=== PATIENT | male | born 1995 | race Caucasian/White ===

== ENCOUNTER 2016-12-16 11:36 | Emergency (ER) | payer MEDICAID ==
[~2016-12-16] VITALS: Ht 167.6 cm; Wt 60.8 kg
[~2016-12-16 11:36] MED LIST: PROAIR HFA0.09 MG/Ac IH
[2016-12-16 11:37] VITALS: BP 125/79
--- NOTE | 2016-12-16 11:40 | NUR ---
PT AMBULATED TO ER BED 6.
--- NOTE | 2016-12-16 11:44 | NUR ---
21/M C/O SOB AFTER ARGUMENT WITH GIRLFRIEND---ALSO CHASING GIRLFRIEND ADDS CONSTIPATION WITH RECTAL DISCOMFORT. DENIES DRUG USE OTHER THAN MARIJUANA TODAY. AAOx4, PERRLA. JIGARD NOTIFIED OF PT STATUS.
[2016-12-16 11:46] VITALS: BP 125/79
--- NOTE | 2016-12-16 11:50 | NUR ---
PATIENT LEFT WITHOUT DISCHARGE INSTRUCTION BY ERMD. NO FURTHER CARE PROVIDED FOR PATIENT.
== END 2016-12-16 11:50 | disposition left against medical advice (07) ==
LOC: MED 11:36
DX: R06.02 Shortness of breath (principal); Z53.21 Procedure and treatment not carried out due to patient leaving prior to being seen by health care provider

== ENCOUNTER 2016-12-24 08:19 | Emergency (ER) | payer MEDICAID ==
[~2016-12-24] VITALS: Ht 167.6 cm; Wt 60.8 kg
--- NOTE | 2016-12-24 08:37 | NUR ---
PATIENT TO ER BED 5.
[2016-12-24 08:39] VITALS: BP 117/67
[2016-12-24] MEDS ORDERED: KETOROLAC 60 MG/2 ML VIAL IM ONE (08:40)
[2016-12-24] MEDS ORDERED: ONDANSETRON 4 MG ODT PO ONE (08:40)
--- NOTE | 2016-12-24 08:40 | NUR ---
Patient being evaluated by physician at bedside.
--- NOTE | 2016-12-24 08:48 | NUR ---
21/M TO ED WITH C/O SORE THROAT, COUGH X1 WEEK. PT STATES HE HAD N/V/D STARTING THIS MORNING. PAIN 8/10. BOWEL SOUNDS PRESENT X4Q. LUNGS CLEAR BILAT. HR EVEN AND REGULAR. AAOX4. VSS. NO SIGNS OF DISTRESS.
[2016-12-24] MEDS ORDERED: ALUMINUM HYD/MAG/SIMETHICONE 30 ML, BELLADONNA/PHENOBARBITAL 10 ML, LIDOCAINE VISCOUS 2... PO ONE (09:05)
[2016-12-24 09:38] VITALS: BP 117/67
--- NOTE | 2016-12-24 09:38 | NUR ---
Patient discharged with v/s stable. Written and verbal after care instructions given and explained. Patient alert, oriented and verbalized understanding of instructions. Ambulatory with steady gait. All questions addressed prior to discharge. ID band removed. Patient advised to follow up with PMD. Rx of CHLORASEPTIC, ZOFRAN, BENTYL, ALBUTEROL given. Patient educated on indication of medication including possible reaction and side effects. Opportunity to ask questions provided and answered.
== END 2016-12-24 09:38 | disposition home or self-care (01) ==
LOC: MED 08:19
DX: B34.9 Viral infection, unspecified (principal); J45.909 Unspecified asthma, uncomplicated
CPT/HCPCS: 96372; 99283; J1885; S0119

== ENCOUNTER 2016-12-29 06:30 | Emergency (ER) | payer MEDICAID ==
[~2016-12-29] VITALS: Ht 167.6 cm; Wt 60.8 kg
[~2016-12-29 06:30] MED LIST changes: +ALBU-136 IH; -PROAIR HFA0.09 MG/Ac IH
[2016-12-29 06:36] VITALS: BP 116/81
--- NOTE | 2016-12-29 06:55 | NUR ---
PT IS 21/M BIB SELF TO ED WITH C/O SOB, COUGHING X 2 WEEKS. PT STATES CHEST PAIN SINCE 0400 TODAY. PT STATES VIRAL INFECTION LAST WEEK AND WAS GIVEN ZOFRAN. PT STATES MED HX OF ASTHMA, GERD. DENIES V/D; SKIN IS PINK/WARM/DRY; AAOX4 WITH EVEN AND STEADY GAIT; LUNGS CLEAR BL; HR EVEN AND REGULAR; PT DENIES ANY FEVER AT THIS TIME; PATIENT STATES PAIN OF 9/10 AT THIS TIME; VSS; PATIENT POSITIONED FOR COMFORT; HOB ELEVATED; BEDRAILS UP X2; BED DOWN. ER MD MADE AWARE OF PT STATUS.
--- NOTE | 2016-12-29 07:12 | NUR ---
ENDORSED REPORT TO DAY SHIFT NURSE MARYLU HARVEY FOR TRANSFER OF CARE.
[2016-12-29] MEDS ORDERED: ACETAMINOPHEN EXTRA STRENGTH 500 MG TAB PO ONE (07:15)
[2016-12-29] MEDS ORDERED: methylPREDNISolone SS 125 MG in WATER STERILE 2 ML IV ONE (07:15)
--- NOTE | 2016-12-29 07:17 | NUR ---
DR. CRUZ PRESENT AT BEDSIDE.
--- NOTE | 2016-12-29 07:20 | NUR ---
RECEIVED REPORT FROM MARYLU MCKEON. PT IS AAOX4. SKIN IS WARM, PINK AND DRY. PT C/O CHEST PAIN 9/10 AT THIS TIME. SAFETY PRECAUTIONS IN PLACE WITH BED IN LOWEST POSITION AND SIDE RAIS UP X2. WILL CONTINUE TO MONITOR.
--- NOTE | 2016-12-29 07:38 | NUR ---
PT TO RADIOLOGY VIA WHEELCHAIR.
[2016-12-29] MEDS: ALBUTEROL SULFATE/IPRATROPIU 3 ML SOL IH ONE ×2 (07:39→08:23)
--- NOTE | 2016-12-29 07:41 | NUR ---
PT BACK FROM RADIOLOGY AND IN BED
[2016-12-29] MEDS ORDERED: methylPREDNISolone SS 125 MG/2 ML VIAL ONE (07:56)
[2016-12-29 08:02] LABS: BILIRUBIN,URINE NEGATIVE (NEGATIVE); BLOOD, URINE 2+ (NEGATIVE); COLOR,URINE YELLOW (YELLOW); LEUKOCYTE ESTERASE ,URINE NEGATIVE (NEGATIVE); NITRITE, URINE NEGATIVE (NEGATIVE); PH,URINE 5.5 (5.0-9.0); PROTEIN,URINE NEGATIVE (NEGATIVE); UGLUCOSE NEGATIVE (NEGATIVE); UROBILINOGEN,URINE 0.2 EU/dL (0.2 - 1)
[2016-12-29 08:04] LABS: BASOPHILS # (AUTO) 0.2 K/uL (0.00-0.22); BASOPHILS % (AUTO) 2.7 % (0.0-2.0); EOSINOPHILS # (AUTO) 0.3 K/uL (0-0.4); EOSINOPHILS % (AUTO) 3.6 % (0.0-4.0); HEMATOCRIT 44.9 % (36-52); HEMOGLOBIN 14.9 g/dL (12.0-18.0); LYMPHOCYTES # (AUTO) 1.1 K/uL (2.0-11.5); LYMPHOCYTES % (AUTO) 14.4 % (20.5-51.1); MEAN CORPUSCULAR HEMOGLOBIN 32 pg (27-31); MEAN CORPUSCULAR HGB CONC 33 g/dL (33-37); MEAN CORPUSCULAR VOLUME 95 fL (80-94); MONOCYTES # (AUTO) 0.7 K/uL (0.8-1.0); MONOCYTES % (AUTO) 9.8 % (1.7-9.3); NEUTROPHILS # (AUTO) 5.3 K/uL (1.8-7.7); NEUTROPHILS % (AUTO) 69.5 % (42.2-75.2); PLATELET COUNT (AUTO) 194 K/uL (140-450); RED BLOOD CELL COUNT(AUTO) 4.72 MIL/uL (4.20-6.10); RED CELL DISTRIBUTION WIDTH 12.2 % (11.6-13.7); WHITE BLOOD COUNT (AUTO) 7.6 K/uL (4.8-10.8)
[2016-12-29 08:08] LABS: APPEARANCE,URINE HAZY (CLEAR)
[2016-12-29 08:08] LABS: ANION GAP 10.5 (8-16); CREATININE 0.8 mg/dL (0.6-1.3); POTASSIUM 3.5 mmol/L (3.5-5.1)
[2016-12-29 08:10] LABS: PROTHROMBIN TIME 9.8 secs (10.8-13.4)
[2016-12-29 08:10] LABS: AMPHETAMINE, URINE NEG. ng/ml (NEG <=1000); BARBITURATE, URINE NEG. ng/ml (NEG <=200); BENZODIAZEPINE, URINE NEG. ng/mL (NEG <=200); CANNABINOID, URINE POS. ng/mL (NEG <=50); COCAINE, URINE NEG. ng/mL (NEG <=300); OPIATE, URINE NEG. ng/mL (NEG <=2000); PHENCYCLIDINE SCREEN,URINE NEG. ng/mL (NEG <=25)
[2016-12-29 08:12] LABS: CALCIUM 8.6 mg/dL (8.5-10.1)
[2016-12-29 08:16] LABS: BACTERIA,URINE 1+ /HPF (None Seen); SQUAMOUS EPITHELIAL CELL,UR 0-4 /LPF (0-3 (FEW)); WBC,URINE O-3 /HPF (0-5)
--- NOTE | 2016-12-29 08:25 | NUR ---
RT PRESENT AT BEDSIDE FOR BREATHING TX.
--- NOTE | 2016-12-29 09:09 | NUR ---
DR. CRUZ PRESENT AT PT BEDSIDE.
[2016-12-29 09:17] VITALS: BP 118/55
--- NOTE | 2016-12-29 09:28 | NUR ---
Patient discharged with v/s stable. Written and verbal after care instructions given and explained. Patient alert, oriented and verbalized understanding of instructions. Ambulatory with steady gait. All questions addressed prior to discharge. ID band removed. Patient advised to follow up with PMD. Rx of CIPRO, ALBUTEROL, PREDNISON given. Patient educated on indication of medication including possible reaction and side effects. Opportunity to ask questions provided and answered.
== END 2016-12-29 09:28 | disposition home or self-care (01) ==
LOC: MED 06:30
DX: J45.901 Unspecified asthma with (acute) exacerbation (principal); N39.0 Urinary tract infection, site not specified; K21.9 Gastro-esophageal reflux disease without esophagitis
CPT/HCPCS: 36415; 71020; 80048; 80305; 81001; 85025; 85379; 85610; 87086; 87804; 93005; 94640; 96374; 99285; J2930; J7620

== ENCOUNTER 2017-01-07 07:29 | Emergency (ER) | payer MEDICAID ==
[~2017-01-07] VITALS: Ht 167.6 cm; Wt 60.8 kg
[~2017-01-07 07:29] MED LIST changes: -ALBU-136 IH; +PROAIR HFA0.09 MG/Ac IH
[2017-01-07 07:35] VITALS: BP 99/54
--- NOTE | 2017-01-07 07:38 | NUR ---
PATIENT AMBULATED TO BED 6 AT THIS TIME
--- NOTE | 2017-01-07 07:40 | NUR ---
21/M BIB SELF C/O RASH & REDNESS ALL OVER BODY X YESTERDAY. PT STATES PT HAS ITCHING & BURNING PAIN ALL OF BODY 5/10 AT THIS TIME. DENIES N/V/D; AAOX4 WITH EVEN AND STEADY GAIT; LUNGS CLEAR BL; HR EVEN AND REGULAR; PT DENIES ANY FEVER, CP, SOB, OR COUGH AT THIS TIME; VSS; PATIENT POSITIONED FOR COMFORT; HOB ELEVATED; BEDRAILS UP X2; BED DOWN. ER MD MADE AWARE OF PT STATUS.
[2017-01-07 08:03] VITALS: BP 111/61
--- NOTE | 2017-01-07 08:03 | NUR ---
Patient discharged with v/s stable. Written and verbal after care instructions given and explained. Patient alert, oriented and verbalized understanding of instructions. Ambulatory with steady gait. All questions addressed prior to discharge. ID band removed. Patient advised to follow up with PMD. Rx of PREDNISONE & BENADRYL ALLERGY 25 MG KAPGEL given. Patient educated on indication of medication including possible reaction and side effects. Opportunity to ask questions provided and answered.
== END 2017-01-07 08:03 | disposition home or self-care (01) ==
LOC: MED 07:29
DX: R21 Rash and other nonspecific skin eruption (principal); J45.909 Unspecified asthma, uncomplicated; K21.9 Gastro-esophageal reflux disease without esophagitis

== ENCOUNTER 2017-04-28 20:44 | Emergency (ER) | payer MEDICAID ==
[~2017-04-28] VITALS: Ht 170.2 cm; Wt 61.7 kg
[~2017-04-28 20:44] MED LIST changes: +ALBU-136 IH; -PROAIR HFA0.09 MG/Ac IH
[2017-04-28 20:53] VITALS: BP 110/59
--- NOTE | 2017-04-28 21:32 | NUR ---
TO ER OF3
--- NOTE | 2017-04-28 21:38 | NUR ---
22M BIB FAMILY C/O POSTERIOR NECK PAIN, RADIATES TO POSTERIOR UPPER BACK, THROBBING, 8/10 X 2 DAYS; PT STATES NO TRAUMA OR INJURY TO SITES AT THIS TIME; PT C/O DRY COUGH X 2 DAYS; BL LUNG SOUNDS CLEAR, BILATERAL EQUAL RISE/FALL OF CHEST, RR EVEN/UNLABORED AT THIS TIME; PT AA&OX4, PERRLA, STATES NO N/V/D AT THIS TIME; SKIN IS WARM/DRY/INTACT AT THIS TIME; PT RESTING IN CHAIR, POSITIONED FOR COMFORT; ER MD MADE AWARE OF STATUS. WILL CONTINUE TO MONITOR.
[2017-04-28] MEDS ORDERED: KETOROLAC 30 MG/ML VIAL IM ONE (21:55)
--- NOTE | 2017-04-28 22:15 | NUR ---
PT TAKEN TO XRAY VIA W/C ACCOMPANIED BY Yoyo AT THIS TIME.
[2017-04-28 22:37] VITALS: BP 112/60
--- NOTE | 2017-04-28 22:37 | NUR ---
Patient discharged with v/s stable. Written and verbal after care instructions given and explained. Patient alert, oriented and verbalized understanding of instructions. Ambulatory with steady gait. All questions addressed prior to discharge. ID band removed. Patient advised to follow up with PMD. Rx of VALIUM 5MG TAB & NAPROSYN 500MG TAB given. Patient educated on indication of medication including possible reaction and side effects. Opportunity to ask questions provided and answered.
== END 2017-04-28 22:37 | disposition home or self-care (01) ==
LOC: MED 20:44
DX: S16.1XXA Strain of muscle, fascia and tendon at neck level, initial encounter (principal); J45.909 Unspecified asthma, uncomplicated; K21.9 Gastro-esophageal reflux disease without esophagitis; X58.XXXA Exposure to other specified factors, initial encounter; Y93.89 Activity, other specified; Y92.89 Other specified places as the place of occurrence of the external cause; Y99.8 Other external cause status
CPT/HCPCS: 72040; 96374; 99284; J1885

== ENCOUNTER 2017-06-02 21:26 | Emergency (ER) | payer MEDICAID ==
[~2017-06-02] VITALS: Ht 167.6 cm; Wt 64.4 kg
[2017-06-02 22:11] VITALS: BP 125/70
--- NOTE | 2017-06-02 23:43 | NUR ---
PT TAKEN TO OF2
--- NOTE | 2017-06-02 23:50 | NUR ---
Dr. Mccabe evaluating patient
[2017-06-03] MEDS ORDERED: HYDROcodone/APAP 5/325 MG 1 TAB TAB PO ONE (00:15)
[2017-06-03 01:20] VITALS: BP 118/63
== END 2017-06-03 01:20 | disposition home or self-care (01) ==
LOC: MED 21:26
DX: S00.83XA Contusion of other part of head, initial encounter (principal); J45.909 Unspecified asthma, uncomplicated; K21.9 Gastro-esophageal reflux disease without esophagitis; Z79.899 Other long term (current) drug therapy; W01.0XXA Fall on same level from slipping, tripping and stumbling without subsequent striking against object, initial encounter; Y93.89 Activity, other specified; Y92.89 Other specified places as the place of occurrence of the external cause; Y99.8 Other external cause status
CPT/HCPCS: 70486; 99282; 99284